=== PATIENT | male | born 1980 | race Caucasian/White ===

== ENCOUNTER 2025-02-22 13:27 | Outpatient (CLI) | payer OTHER | END 2025-02-22 13:28 | disposition home or self-care (01) | LOC: SCSMRI 13:27 | PROVIDERS: ATTEND Family Medicine | DX: S59.909A Unspecified injury of unspecified elbow, initial encounter (principal); M24.812 Other specific joint derangements of left shoulder, not elsewhere classified; M24.129 Other articular cartilage disorders, unspecified elbow; S43.422A Sprain of left rotator cuff capsule, initial encounter; M67.814 Other specified disorders of tendon, left shoulder ==